=== PATIENT | male | born 1980 | race African-American/Black ===

== ENCOUNTER 2016-09-05 22:26 | Emergency (ER) | payer SELFPAY ==
[2016-09-05 23:03] LABS: URINE SOURCE CLEAN CATCH
[2016-09-05 23:07] LABS: URINE APPEARANCE CLEAR; URINE BILIRUBIN NEG (NEG); URINE BLOOD NEG (NEG); URINE COLOR YELLOW; URINE GLUCOSE NEG (NEG); URINE KETONE TRACE (NEG); URINE LEUKOCYTE ESTERASE 2+ (NEG); URINE NITRATE NEG (NEG); URINE PROTEIN NEG (NEG); URINE SPECIFIC GRAVITY 1.025 (1.003-1.035)
[2016-09-05 23:10] LABS: CULTURE INDICATED? YES; URINE BACTERIA AUWI NEG (NEGATIVE); URINE SQUAMOUS EPITHELIAL CELL NONE SEEN /[HPF]; UWBCS1 AUWI 50-100 (0-5)
[2016-09-08 15:04] LABS: CHLAMYDIA TRACH Not Detected (Not Detected); N GONOR Detected (Not Detected)
== END 2016-09-06 00:25 | disposition home or self-care (01) ==
LOC: CED 22:26 → CFTX 22:26 → CED 23:59 → CFTX 23:59 → CED 09-06 00:25
PROVIDERS: Nurse Practitioner
DX: N34.2 Other urethritis (principal); N39.0 Urinary tract infection, site not specified; Z88.0 Allergy status to penicillin; F17.200 Nicotine dependence, unspecified, uncomplicated
CPT/HCPCS: 81003; 87086; 87491; 87591; 96372; 99283; J0696